=== PATIENT | female | born 2000 | race Caucasian/White ===

== ENCOUNTER 2018-03-29 17:12 | Emergency (ER) | payer OTHER ==
[~2018-03-29] VITALS: Ht 160 cm; Wt 81.6 kg
[2018-03-29 17:15] VITALS: BP 134/70
--- NOTE | 2018-03-29 17:28 | NUR ---
PT AMBULATED TO BED 9
--- NOTE | 2018-03-29 17:30 | NUR ---
17F BIB BOYFRIEND WITH C/O 4/10 PERIUMBILICAL PAIN X YESTERDAY AFTER EATING DEL TACO. PT SENT FROM PCP FOR POSSIBLE APPENDICITIS. PT REPORT OF VOMITTING X 1 THIS AM. PT DENIES ANY N/V/D AT THIS TIME. PT ALSO DENIES ANY FEVERS OR URINARY COMPLAINTS. PT IS AOX4. GCS=15. RR ARE EVEN AND UNLABORED. NO ACUTE DISTRESS AT THIS TIME. AWAITING ER EVAL. WILL CONTINUE TO MONITOR.
[2018-03-29 18:10] LABS: APPEARANCE,URINE CLEAR (CLEAR); BILIRUBIN,URINE NEGATIVE (NEGATIVE); BLOOD, URINE NEGATIVE (NEGATIVE); COLOR,URINE YELLOW (YELLOW); LEUKOCYTE ESTERASE ,URINE NEGATIVE (NEGATIVE); NITRITE, URINE NEGATIVE (NEGATIVE); UGLUCOSE NEGATIVE (NEGATIVE)
--- NOTE | 2018-03-29 18:57 | NUR ---
Diana kilgore in [facility] - 03/29/18 at 1902 by RYAN PT TO US VIA W/C ACCOMPANIED BY US TECH
--- NOTE | 2018-03-29 19:08 | NUR ---
Pt report given to sheela mobley. Transfer of care at this time.
--- NOTE | 2018-03-29 19:13 | NUR ---
ULTRASOUND IN TO SEE PATIENT
--- NOTE | 2018-03-29 19:21 | NUR ---
Dr. Gan evaluating patient at bedside.
--- NOTE | 2018-03-29 19:36 | NUR ---
Patient discharged with v/s stable. Written and verbal after care instructions given and explained. Patient verbalized understanding. Ambulatory with steady gait. All questions addressed prior to discharge. Advised to follow up with PMD.
[2018-03-29 19:37] VITALS: BP 134/70
== END 2018-03-29 19:36 | disposition home or self-care (01) ==
LOC: MED 17:12
DX: N83.209 Unspecified ovarian cyst, unspecified side (principal)
CPT/HCPCS: 76856; 81003; 81025; 99285; Q0092